=== PATIENT | female | born 1980 | race Caucasian/White ===

== ENCOUNTER 2023-12-27 19:54 | Emergency (ER) | payer OTHER ==
[2023-12-27 20:11] VITALS: BP 116/72; PULSE 86; RESP 18; TEMP 99.6; BMI 28.3
[2023-12-27] MEDS ORDERED: ACETAMINOPHEN INJECTION 100 ML ONE (21:00)
[2023-12-27] MEDS: ACETAMINOPHEN 1000 MG/100 ML BAG IVPB ONE (21:04)
[2023-12-27] MEDS: LACTATED RINGERS SOLUTION 1000 ML INFUS.BAG IV ONE (21:05)
[2023-12-27 21:06] LABS: BASO % 0.7 % (0-2.0); HEMATOCRIT 39.2 % (32.4-45.2); HEMOGLOBIN 13.8 GM/dL (10.7-15.3); LYMPH % 16.1 % (8-40); MCH 31.7 pg (25.7-33.7); MCHC 35.1 g/dl (32.0-36.0); MEAN CELL VOLUME 90.2 fl (80-96); MEAN PLT VOLUME 8.9 fl (7.5-11.1); MONO % 5.4 % (3.8-10.2); NEUT % 76.8 % (42.8-82.8); PLATELET COUNT 225 10^3/uL (134-434); RBC 4.35 M/mm3 (3.60-5.2); RDW 13.2 % (11.6-15.6); WHITE BLOOD COUNT 10.9 K/mm3 (4.0-10.0)
[2023-12-27 21:09] LABS: EPI CELLS 10 /uL (0-25.1); HYALINE CASTS 0 /uL (0-3.1); PH,URINE 6.5 (5.0-8.0); URINE APPEARANCE CLEAR; URINE BILIRUBIN NEGATIVE (NEGATIVE); URINE COLOR DK YELLOW; URINE GLUCOSE (UA) NEGATIVE (NEGATIVE); URINE KETONE NEGATIVE (NEGATIVE); URINE LEUK ESTERASE NEGATIVE (NEGATIVE); URINE NITRITE POSITIVE (NEGATIVE); URINE PROTEIN NEGATIVE (NEGATIVE); URINE RBC 15 /uL (0-23.9); URINE WBC 9 /uL (0-25.8)
[2023-12-27 21:41] LABS: POTASSIUM 3.9 mmol/L (3.5-5.1)
[2023-12-27 21:46] LABS: ALBUMIN 3.7 g/dl (3.4-5.0); BLOOD UREA NITROGEN 5.3 mg/dL (7-18); CALCIUM 8.9 mg/dL (8.5-10.1)
[2023-12-27 21:49] LABS: CREATININE 0.6 mg/dL (0.55-1.3)
[2023-12-27 21:50] LABS: TOT PROT 7.4 g/dl (6.4-8.2)
[2023-12-27] MEDS ORDERED: CEFTRIAXONE 1 GM/50 ML BAG ONE (22:15)
[2023-12-28 08:18] LABS: URINE BACTERIA 124 /uL (0-1359)
== END 2023-12-27 22:39 | disposition home or self-care (01) ==
LOC: JERFT 19:54 → JER 19:54
PROC: 3E033NZ Introduction of Analgesics, Hypnotics, Sedatives into Peripheral Vein, Percutaneous Approach (ICD-10-PCS; principal; 2023-12-27)
PROC: 3E03329 Introduction of Other Anti-infective into Peripheral Vein, Percutaneous Approach (ICD-10-PCS; 2023-12-27)
DX: N12 Tubulo-interstitial nephritis, not specified as acute or chronic (principal); R30.0 Dysuria; R50.9 Fever, unspecified
CPT/HCPCS: 36415; 80053; 81003; 85025; 87086; 87186; 99284-25; J0131